=== PATIENT | male | born 1955 | race Caucasian/White ===

== ENCOUNTER 2024-11-19 09:11 | Outpatient (AMB) | payer OTHER, SELFPAY ==
--- NOTE | 2024-11-19 09:27 | MHC.OFFVIS ---
Intake Visit Reasons: ENP-Headaches & Dizziness Allergies pollen extracts Allergy (Unknown, Verified 11/13/24 07:58) Unknown HPI Comments Details: The patient is a 69-year-old male presenting with issues related to balance. Symptoms have been progressively worsening over the past couple of years. The patient experiences particular difficulty maintaining balance when looking up and in darkened environments. Although he reports crampiness in his limbs, he denies any pain. The patient has a history of alcohol use disorder, having ceased all alcohol consumption five years ago. He experienced past falls and loss of consciousness, likely associated with his previous alcohol use, but reports no such episodes since quitting drinking. Additionally, the patient denies any current seizure-like occurrences or significant mental symptoms such as hallucinations. Anxiety is being managed with paroxetine. Memory issues and a recent episode of nighttime urinary incontinence were discussed, with connections to coffee consumption and blood pressure medication considered. [facility] Medical History (Updated 11/19/24 @ 09:35 by Carli Mclaughlin MD) Vitamin D deficiency Vitamin B12 deficiency Imbalance Other migraine, intractable, with status migrainosus Vertigo HLD (hyperlipidemia) Hypertension Pre-diabetes Surgical History (Updated 11/13/24 @ 07:55 by Raven Galvan CMA) S/P partial colectomy with anastomosis Family History (Updated 11/13/24 @ 07:56 by Raven Galvan CMA) Sister Hypertension Lung cancer Brother Hypertension Diabetes mellitus Review of Systems Const Details: - Neurological: Reports balance difficulties, memory issues. Denies seizures or mental health symptoms like hallucinations. - Psychiatric: Reports anxiety, managed with paroxetine. - Constitutional: Reports having fallen in the past, with loss of consciousness five years ago. - Genitourinary: Reports a recent mild urinary incontinence incident at night. - Endocrine: Denies history of diabetes. - Musculoskeletal: Reports crampiness, denies pain. Physical Exam Neuro Other: Mental Status: Alert and oriented to person, place, and time. Normal attention. Normal spontaneous speech, fluency, and comprehension. No obvious issues with mood and memory. Affect is appropriate. Cranial Nerves: CN II: Visual rivera full to confrontation, visual acuity intact. CN III, IV, : Pupils equal, round, reactive to light and accommodation. Extraocular movements are normal. CN V: Facial sensation is normal. CN VII: Facial movements symmetrical. CN VIII: Hearing intact to bedside conversation is normal. CN IX, X: Palate elevates symmetrically. CN XI: Shoulder shrug and head turn symmetrical. CN XII: Tongue midline without atrophy or fasciculations. -Knee and ankle reflexes are 1+, upper limb reflexes are 1+. Plantar reflexes are flexor. Vibration sense is present in toes; joint position sense is absent. - Sensory Exam- Inability to accurately identify movement direction with eyes closed. - Coordination- Rnmzwi-jy-cyzm test is intact bilaterally. Extrapyramidal: Full facial expressions and blinking. No rigidity. Movements are appropriate with no tremor or abnormality. Speech: Normal; no dysarthria or tremor. 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 He probably has combination of central peripheral nervous system pathology, partly related to alcohol exposure. As his symptoms were getting worse, workup is recommended for proper management. Rec: a: EMG/NCS for evaluation of nerves b: B12/folate c: MRI brain w/o Orders: Orders MR head/brain wo con Today G31.84 - Mild cognitive impairment of uncertain or unknown etiology, R27.0 - Ataxia, unspecified NE nerve conduction velocity Today G62.9 - Polyneuropathy, unspecified NE electromyogram (EMG) Today G62.9 - Polyneuropathy, unspecified Vitamin B12 and Folate Today G62.9 - Polyneuropathy, unspecified Coding Level of Care Code Tele New Pt Level 5 (48008) Diagnoses Sensory neuropathy G62.9 Ataxia R27.0 MCI (mild cognitive impairment) G31.84
--- OUTSIDE RECORDS SUMMARY | 2024-11-19 09:32 | XMS_ITS | Patient Health Record ---
Author Organization [facility] laura [place] Address [address] [place] [address] Care Team Providers Care Tariff Expert Name Role Phone Jolanta Yadav Primary Care Provider Matthew vegas Twila May Unavailable [phone] Allergies No Known Allergies Reason For Referral No Information Medications Medication SIG (Take, Route, Fr equency, Duration) Notes Start Date End Date Status atenolol Active Losartan Potassium A ctive PARoxetine HCl 40 MG 1 tablet in the mor baljit Orally Once a day; Duration: 30 day(s) Active Social History Tobacco Use: Social History Observation Description Date Details (start date - stop date) Current Smoker 04/15/2016 - NA Tobacco Use/Smoking Question Answer Notes Are you a: current smoker When did you start smoking? 04/15/2016 How often do you smoke cigarettes? every day How many cigarettes a day do you smoke? 6-10 Alcohol Screen Question Answer Notes Did you have a drink containing alcohol in the p ast year? No Points 0 Interpretation Negative Tobacco use other than smoking: Question Answer Notes Are you an other tobacco user? 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) Active confirmed Problem Localized, primary osteoarthritis of the ankle and/or foot (700721365) Arthritis of joint of lesser toe, left (M19.072) Active confirmed Problem Localized, primary osteoarthritis of the ankle and/or foot (317320471) Arthritis of joint of lesser toe, right (M19.071) Active confirmed Plan Of Treatment No Information Insurance Providers Payer Name Payer Address Payer Phone Subscriber Number Group Number Insured Name Patient Relationship to Insured Coverage Start Date Coverage End Date [employer] Medicare [id number] [address] [address] [place] [address] [id number] Tosha Wright Spouse - patient is the spouse of the insured Medical (General) History Medical History History ICD Code Alzheimers disease Anxiety High blood pressure Surgical History Surgery Date(Month/Year)
--- OUTSIDE RECORDS SUMMARY | 2024-11-19 09:32 | XMS_ITS | Clinical Summary ---
Author Organization [facility] [address] [facility] Address [address] [place] [address] Phone Care Team Providers Care Compound Worker Name Role Phone Luis Silver MD Primary Care Provider [phone] Allergies Active Allergy Reactions Criticality Noted Date Comments Pollen Extracts 09/06/2023 Medications atenoloL (TENORMIN) 25 mg tabletIndication s:Palpitations TAKE 1 TABLET BY MOUTH EVERY DAY 180 tablet 1 4 Active traZODone (DESYREL) 50 mg tabletIndication s:Anxiety disorder, unspecified TAKE 1 TABLET BY MOUTH EVERYDAY AT BEDTIME 90 tablet 1 5 Active PARoxetine (PAXIL) 40 mg tablet Take 1 tablet (40 mg total) by mouth 1 (one) time each day in the morning. 90 tablet 3 5 Active rosuvastatin (CRESTOR) 20 mg tablet Take 1 tablet (20 mg total) by mouth 1 (one) time each day. 90 tablet 3 5 Active losartan-hydroCH LOROthiazide (HYZAAR) 100-12.5 mg per tablet Take 1 tablet by mouth 1 (one) time each day. 90 tablet 1 5 Active promethazine (PHENERGAN) 12.5 mg tabletIndication s:Benign paroxysmal positional vertigo, unspecified laterality TAKE 1 TABLET BY MOUTH EVERY 6 HOURS NEEDED FOR NAUSEA AND VOMITING 30 tablet 2 5 Active cetirizine (ZyrTEC) 10 mg tablet Take 1 tablet (10 mg total) by mouth 1 (one) time each day. 30 each 11 Active Active Problems Problem Noted Date Diagnosed Date Acquired hammer toe of left foot 06/16/2024 Acquired hammer toe of right foot 06/16/2024 Primary localized osteoarthrosis of ankle and fo ot 06/16/2024 Pronation deformity of right foot 06/16/2024 Essential hypertension 07/10/2022 Hyperlipidemia 07/10/2022 Pre-diabetes 07/10/2022 Encounters Date Type Department Care Team Description 11/02/2024 8:30 AM EDT Office Visit Internal Medicine - [place] [address] [place] [address] Rachel Wade NP Vertigo (Primary Dx); Other migraine with status migrainosus, intractable; Imbalance; Headache with remote history of traumatic head injury; Screening for diabetes mellitus; Screening for ischemic heart disease; Vitamin B12 deficiency; Vitamin D deficiency; Encounter for screening for malignant neoplasm of prostate; Essential hypertension; Hyperlipidemia, unspecified hyperlipidemia type from Last 3 Months Surgical History Surgery Date Site/Laterality Comments OTHER SURGICAL HISTORY PROCEDURE: [place] COLECTOMY PARTIAL W/ANASTOMOSIS Medical History Medical History Date Comments Essential hypertension DX:Essent ial hypertension Hyperlipidemia DX:Hyperlipidemi a Pre-diabetes DX:Pre-diabetes BPPV (benign paroxysmal posi tional vertigo) DX:BPPV (benign paroxysmal p ositional vertigo) Family History Medical History Relation Name Comments Diabetes Brother Hypertension Brother Hypertension Sister Lung cancer Sister Relation Name Status Comments Brother Sister Social History Tobacco Use Types Packs/Day Years Used Date Smoking Tobacco: Every Day Cigarettes Smokeless Tobacco: Never Alcohol Use Standard Drinks/Week Comments Not Currently 0 (1 standard drink = 0.6 oz pur e alcohol) Sex and Gender Information Value Date Recorded Sex Assigned at Male 05/13/2024 2:33 PM EST Legal Sex Male 6:48 PM EST Gender Identity Male 05/13/2024 2:33 PM EST Sexual Orientation Straight 05/13/2024 2: 33 PM EST Obstetrics History Last Filed Vital Signs Vital Sign Reading Time Taken Comments Blood Pressure 136/56 11/02/2024 8:32 AM EDT Pulse 82 11/02/2024 8:32 AM EDT Temperature 36.3 C (97.3 F) 11/02/2024 8:32 AM EDT Respiratory Rate 20 11/02/2024 8:32 AM EDT Oxygen Saturation 95% 11/02/2024 8:32 AM EDT Inhaled Oxygen Concentration - - Weight 85.7 kg (189 lb) 11/02/2024 8:32 AM EDT Height 167.6 cm (5' 6 ) 11/02/2024 8:32 AM EDT Body Mass Index 30.51 11/02/2024 8:32 AM EDT Plan of Treatment Upcoming Encounters Date Type Department Care Team (Late st Contact Info) Description 03/10/2025 8:15 AM EST Office Visit Internal Medicine - [place] [address] [place] [id number] Luis Silver MD [address] [place] [address] Health Maintenance Due Date Last Done Comments COVID-19 Vaccine (#1) 08[birth year]10/1960 DTaP,Tdap,and Td Vaccines (1 - Tdap) 08/10/1974 Pneumococcal Vaccine: 50+ Years (1 of 2 - PCV) 08/10/1974 Zoster Vaccines (1 of 2) 08/10/1974 Colorectal Cancer Screening: Colonoscopy 03/17/2022 Falls Risk Assessment 03/17/2022 Hepatitis C Screening 03/17/2022 Social Influencers of Health Screening 03/17/2022 Depression Screening 04/15/2024 Influenza Vaccine (#1) 2024 Hypertension/CHF/CAD Annual BMP Blood Test 11/02/2025 11/02/2024, 10/02/2023, 09/11/2023 Cholesterol Screening (Lipid Panel) 11/02/2029 11/02/2024, 09/11/2023 RSV Immunization Adult Patients (1 - 1-dose 75+ series) 08/10/2030 Abdominal Aortic Aneurysm (AAA) Screen Completed 07/17/2023 HIB Vaccines Aged Out No longer eligi ble based on patient's age to complete this topic HPV Vaccines Aged Out No longer eligi ble based on patient's age to complete this topic Hepatitis A Vaccines Aged Out No long er eligible based on patient's age to complete this topic Hepatitis B Vaccines Aged Out No long er eligible based on patient's age to complete this topic IPV Vaccines Aged Out No longer eligi ble based on patient's age to complete this topic MMR Vaccines Aged Out No longer eligi ble based on patient's age to complete this topic Meningococcal ACWY Vaccine Aged Out N o longer eligible based on patient's age to complete this topic Meningococcal B Vaccine Aged Out No l onger eligible based on patient's age to complete this topic RSV Immunization Patients Under 20 months Aged Out No longer eligible b ased on patient's age to complete this topic Varicella Vaccines Aged Out No longer eligible based on patient's age to complete this topic Procedures Procedure Name Priority Date/Time Associated Diagnosis Comments PROSTATE SPECIFIC ANTIGEN SCREEN Routine 11/02/2024 9:15 AM EDT Encounter for screening for malignant neoplasm of prostate VITAMIN D 25 HYDROXY Routine 11/02/2024 9:15 AM EDT Vitamin D deficiency VITAMIN B12 Routine 11/02/2024 9:15 AM EDT Vitamin B12 deficiency THYROID STIMULATING HORMONE WITH REFLEX TO FREE T4 AND FREE T3 Routine 11/02/2024 9:15 AM EDT Essential hypertension LIPID PANEL WITH REFLEX TO DIRECT LDL Routine 11/02/2024 9:15 AM EDT Screening for ischemic heart disease MAGNESIUM Routine 11/02/2024 9:15 AM EDT Essential hypertension HEMOGLOBIN A1C Routine 11/02/2024 9:15 AM EDT Screening for diabetes mellitus COMPREHENSIVE METABOLIC PANEL Routine 11/02/2024 9:15 AM EDT Essential hypertension COMPLETE BLOOD COUNT Routine 11/02/2024 9:15 AM EDT Essential hypertension US ABDOMINAL AORTA REAL TIME SCREEN STUDY AAA Routine 07/17/2023 8:26 AM EDT Nicotine dependence, unspecified, uncomplicated from Last 3 Months or Most Recently Relevant to Health Maintenance Results * Prostate specific antigen screen (11/02/2024 9:15 AM EDT) PSA 1.51 0.00 - 4.00 ng/mL LAB CHEMISTRY METHOD 11/02/2024 3:30 PM EDT [facility] Blood Venous blood specimen / Unknown Venipuncture / Unknown 11/02/2024 9:15 AM EDT 11/02/2024 9:15 AM EDT Narrative [facility] - 11/02/2024 3:30 PM EDT The Siemens Advia Lexyaur Chemiluminescent Immunoassay is used. Results obtained with different assay methods or kits cannot be used interchangeably. Results cannot be interpreted as absolute evidence of the presence or absence of malignant disease. Rachel Wade NP LAB BLOOD ORDERABLES Final Resul t Performing Organization Address [facility] Co de Phone Number [facility] [address] [place] [address], * Thyroid stimulating hormone with reflex to free t4 and free t3 (11/02/2024 9:15 AM EDT) Pathologist [facility] TSH 1.37 0.40 - 4.00 mcIU/mL LAB CHEMISTRY METHOD 11/02/2024 5:55 PM EDT [facility] Blood Venous blood specimen / Unknown Venipuncture / Unknown 11/02/2024 9:15 AM EDT 11/02/2024 9:15 AM EDT Rachel Wade LAB BLOOD ORDERABLES Final Resul t Performing Organization Address [facility]/ZIP Co de Phone Number [facility] [address] [place] [address], [place] [phone] * (ABNORMAL) Lipid panel with reflex to direct LDL (11/02/2024 9:15 AM EDT) Pathologist [facility] Cholesterol 145 0 - 200 mg/dL LAB CHEMISTRY METHOD 11/02/2024 2:28 PM EDT [facility] Triglycerides 424(H) 0 - 150 mg/dL LAB CHEMISTRY METHOD 11/02/2024 2:28 PM EDT [facility] HDL 33(L) >=40 mg/dL LAB CHEMISTRY METHOD 11/02/2024 2:28 PM EDT [facility] LDL Calculated 27 0 - 100 mg/dL LAB CHEMISTRY METHOD 11/02/2024 2:28 PM EDT [facility] Comment:Unable to calculate when triglycerides >400 mg/dL. VLDL Cholesterol [place] 84.8 mg/dL LAB CHEMISTRY METHOD 11/02/2024 2:28 PM EDT [facility] Comment:Unable to calculate when triglycerides >400 mg/dL. Non HDL Chol. (LDL+VLDL) 112 <145 mg/dL LAB CHEMISTRY METHOD 11/02/2024 2:28 PM EDT [facility] Comment:Unable to calculate when triglycerides >400 mg/dL. Chol/HDL Ratio 4.4 0.0 - 4.4 LAB CHEMISTRY METHOD 11/02/2024 2:28 PM EDT [facility] Blood Venous blood specimen / Unknown Venipuncture / Unknown 11/02/2024 9:15 AM EDT 11/02/2024 9:15 AM EDT us Rachel Wade NP LAB BLOOD ORDERABLES Final Resul t [facility] [address] [place] [address], * Vitamin D 25 hydroxy (11/02/2024 9:15 AM EDT) Vit D, 25-Hydroxy 48.7 30.0 - 80.0 ng/mL LAB CHEMISTRY METHOD 11/02/2024 3:29 PM EDT [facility] Blood Venous blood specimen / Unknown Venipuncture / Unknown 11/02/2024 9:15 AM EDT 11/02/2024 9:15 AM EDT us Rachel Wade POSITIVE PRINTER OPERATOR LAB BLOOD ORDERABLES Final Resul t [facility] [address] [place] [address], [place] [phone] * Complete blood count (11/02/2024 9:15 AM EDT) WBC 7.6 4.8 - 10.8 K/mcL LAB HEMETOLOGY METHOD 11/02/2024 10:35 AM EDT [facility] RBC 4.80 4.50 - 5.50 M/mcL LAB HEMETOLOGY METHOD 11/02/2024 10:35 AM EDT [facility] Hemoglobin 14.9 13.5 - 17.5 g/dL LAB HEMETOLOGY METHOD 11/02/2024 10:35 AM EDT [facility] Hematocrit 44.5 42.0 - 54.0 % LAB HEMETOLOGY METHOD 11/02/2024 10:35 AM EDT [facility] MCV 92.1 79.0 - 98.0 FL LAB HEMETOLOGY METHOD 11/02/2024 10:35 AM EDT [facility] MCH 30.8 27.0 - 32.0 pcg LAB HEMETOLOGY METHOD 11/02/2024 10:35 AM EDT [facility] MCHC 33.5 32.0 - 37.0 g/dL LAB HEMETOLOGY METHOD 11/02/2024 10:35 AM EDT [facility] RDW 12.4 11.0 - 15.0 % LAB HEMETOLOGY METHOD 11/02/2024 10:35 AM EDT [facility] Platelets 156 130 - 400 K/mcL LAB HEMETOLOGY METHOD 11/02/2024 10:35 AM EDT [facility] MPV 9.9 7.0 - 11.0 FL LAB HEMETOLOGY METHOD 11/02/2024 10:35 AM EDT [facility] NRBC 0.0 <1.0 % LAB HEMETOLOGY METHOD 11/02/2024 10:35 AM EDT [facility] NRBC Absolute 0.00 <0.10 K/mcL LAB HEMETOLOGY METHOD 11/02/2024 10:35 AM EDT [facility] Blood Venous blood specimen / Unknown Venipuncture / Unknown 11/02/2024 9:15 AM EDT 11/02/2024 9:15 AM EDT us Ramos Sheri DEUTSCH LAB BLOOD ORDERABLES Final Resul t Performing Organization Address City/[facility]/ZIP Co de Phone Number [facility] [address] [place] [address], [place] [phone] * Magnesium (11/02/2024 9:15 AM EDT) [facility] Magnesium 2.4 1.9 - 2.6 mg/dL LAB CHEMISTRY METHOD 11/02/2024 1:40 PM EDT [facility] Blood Venous blood specimen / Unknown Venipuncture / Unknown 11/02/2024 9:15 AM EDT 11/02/2024 9:15 AM EDT us Rachel Wade NP LAB BLOOD ORDERABLES Final Resul t [facility] [address] [place] [address], [place] [phone] * (ABNORMAL) Hemoglobin A1c (11/02/2024 9:15 AM EDT) Pathologist [facility] Hemoglobin A1C 6.8(H) <6.5 % LAB CHEMISTRY METHOD 11/02/2024 1:04 PM EDT [facility] Mean Bld Glu Estim. 148 mg/dL LAB CHEMISTRY METHOD 11/02/2024 1:04 PM EDT [facility] Blood Venous blood specimen / Unknown Venipuncture / Unknown 11/02/2024 9:15 AM EDT 11/02/2024 9:15 AM EDT Rachel Wade POSITIVE PRINTER OPERATOR LAB BLOOD ORDERABLES Final Resul t Performing Organization Address City/[facility]/ZIP Co de Phone Number [facility] [address] [place] [address], [place] [phone] * Vitamin B12 (11/02/2024 9:15 AM EDT) Pathologist [facility] Vitamin B-12 736 250 - 900 pcg/mL LAB CHEMISTRY METHOD 11/02/2024 2:13 PM EDT [facility] Blood Venous blood specimen / Unknown Venipuncture / Unknown 11/02/2024 9:15 AM EDT 11/02/2024 9:15 AM EDT Rachel Wade POSITIVE PRINTER OPERATOR LAB BLOOD ORDERABLES Final Resul t Performing Organization Address [facility]/ZIP Co de Phone Number [facility] [address] [place] [address], [place] [phone] * (ABNORMAL) Comprehensive metabolic panel (11/02/2024 9:15 AM EDT) Pathologist [facility] Sodium 141 133 - 145 mmol/L LAB CHEMISTRY METHOD 11/02/2024 2:13 PM EDT [facility] Potassium 3.9 3.5 - 5.5 mmol/L LAB CHEMISTRY METHOD 11/02/2024 2:13 PM T [facility] Chloride 106 96 - 110 mmol/L LAB CHEMISTRY METHOD 11/02/2024 2:13 PM T [facility] CO2 28 21 - 32 mmol/L LAB CHEMISTRY METHOD 11/02/2024 2:13 PM EDT [facility] Anion Gap 7 3 - 11 LAB CHEMISTRY METHOD 11/02/2024 2:13 PM [facility] Glucose 105(H) 70 - 100 mg/dL LAB CHEMISTRY METHOD 11/02/2024 2:13 PM [facility] BUN 15 5 - 25 mg/dL LAB CHEMISTRY METHOD 11/02/2024 2:13 PM [facility] Creatinine 1.10 0.70 - 1.30 mg/dL LAB CHEMISTRY METHOD 11/02/2024 2:13 PM [facility] eGFR 73 >=60 mL/min/1. 73m2 LAB CHEMISTRY METHOD 11/02/2024 2:13 PM [facility] Comment:Calculation based on the Chronic Kidney Disease Epidemiology Collaboration (CKD-EPI) equation refit without adjustment for race. BUN/Creatinine Ratio 13.6 LAB CHEMISTRY METHOD 11/02/2024 2:13 PM [facility] Calcium 9.5 8.5 - 10.5 mg/dL LAB CHEMISTRY METHOD 11/02/2024 2:13 PM [facility] AST (SGOT) 18 10 - 42 unit/L LAB CHEMISTRY METHOD 11/02/2024 2:13 PM [facility] ALT (SGPT) 30 10 - 60 unit/L LAB CHEMISTRY METHOD 11/02/2024 2:13 PM [facility] Alkaline Phosphatase 80 42 - 121 unit/L LAB CHEMISTRY METHOD 11/02/2024 2:13 PM [facility] Total Protein 7.0 6.0 - 8.0 g/dL LAB CHEMISTRY METHOD 11/02/2024 2:13 PM [facility] Albumin 4.3 3.2 - 5.0 g/dL LAB CHEMISTRY METHOD 11/02/2024 2:13 PM [facility] Total Bilirubin 0.6 0.0 - 1.4 mg/dL LAB CHEMISTRY METHOD 11/02/2024 2:13 PM [facility] Blood Venous blood specimen / Unknown Venipuncture / Unknown 11/02/2024 9:15 AM EDT 11/02/2024 9:[address] [facility] Rachle Wade NP LAB BLOOD ORDERABLES Final Resul t [facility] ([facility]) [facility] [address] [place] [address], * US ABDOMINAL AORTA REAL TIME SCREEN STUDY AAA (07/17/2023 8:26 AM EDT) Anatomical Region Laterality Modality Ultrasound 05/01/2023 9:31 AM EST Narrative 07/17/2023 11:14 AM EDT Ultrasound of the abdominal aorta. History screening for AAA. There is no evidence of AAA. Proximal aorta measures 2.5 cm, mid aorta measures 1.7 cm, distal aorta measures 1.5 cm. Proximal common iliac arteries measure 1.2 cm each. CONCLUSIONS: No evidence of AAA. Procedure Note Chloe Silverman MD - 12/02/2023 Ultrasound of the abdominal aorta. History screening for AAA. There is no evidence of AAA. Proximal aorta measures 2.5 cm, mid aortameasures 1.7 cm, distal aorta measures 1.5 cm. Proximal common iliac arteries measure 1.2 cmeach. CONCLUSIONS: No evidence of AAA. Jolanta Yadav NP IMG US PROCEDURES Final Result from Last 3 Months or Most Recently Relevant to Health Maintenance Insurance [facility] [place] [id number] MEDICARE Care Teams Compound Worker Relationship Specialty Start Date End Date Luis Silver MD [address] [facility] [address] [place] [address] PCP - General 09/12/23
--- OUTSIDE RECORDS SUMMARY | 2024-11-19 09:32 | XMS_ITS | Clinical Summary ---
Author Organization [facility] Address [address] [address] Phone Care Team Providers Care Silk Screen Processor Name Role Phone Sylvester Hemphill DO Primary Care Provider [phone] EmilianoSylvester wooten DO Unavailable Miguelina Presley PA-C Unavailable [phone] Immunizations No known immunizations Social History Tobacco Use Types Packs/Day Years Used Date Smoking Tobacco: Never Assessed Education Answer Date Recorded Are you interested in more education? Not on telma e 08/09/2022 Are you concerned about learning? Not on file 08/09/2022 No 08/09/2022 No 08/09/2022 Digital Access Answer Date Recorded No 09/10/2022 No 09/10/2022 No 09/10/2022 Reliable internet access at home? Not on file 09/10/2022 Device with a working camera? Not on file Sex and Gender Information Value Date Recorded Sex Assigned at Not on file Legal Sex Male 7:56 PM EST Gender Identity Not on file Sexual Orientation Not on file Last Filed Vital Signs Vital Sign Reading Time Taken Comments Blood Pressure - - Pulse - - Temperature 36.8 C (98.3 F) 05/27/2012 9:52 AM EST Respiratory Rate - - Oxygen Saturation - - Inhaled Oxygen Concentration - - Weight 85.7 kg (189 lb) 05/27/2012 9:52 AM EST Height 167.6 cm (5' 6 ) 05/27/2012 9:52 AM EST Body Mass Index 30.51 05/27/2012 9:52 AM EST Plan of Treatment Health Maintenance Due Date Last Done Comments Adult Td,Tdap Booster 1955 LIPID PANEL 1955 DEPRESSION SCREENING 1967 SMOKING Hx and SMOKELESS TOB ACCO SCREENING 08/10/1968 HEPATITIS C SCREENING 08/10/1973 COLOGUARD 08/10/2000 COLONOSCOPY 08/10/2000 COLORECTAL CANCER SCREENING 08/10/2000 FIT TEST 08/10/2000 FOBT 08/10/2000 SIGMOIDOSCOPY 08/10/2000 VIRTUAL COLONOSCOPY 08/10/2000 PNEUMOCOCCAL VACCINES (50+ y ears) (1 of 1 - PCV) 08/10/2005 ZOSTER VACCINES (1 of 2) 08/10/2005 COVID-19 VACCINE (1 - 2023-2 5 season) 2023 RSV VACCINE (1 - 1-dose 75+ series) 08/10/2030 HEPATITIS A VACCINES Aged Out No long er eligible based on patient's age to complete this topic HIB VACCINES Aged Out No longer eligi ble based on patient's age to complete this topic MENINGOCOCCAL VACCINES (ACWY) Aged Out No longer eligible based on patient's age to complete this topic MENINGOCOCCAL VACCINES (B) Aged Out N o longer eligible based on patient's age to complete this topic Medical Devices Not on file Insurance [facility] POS [facility] POS [facility] [place] [address] [address] [facility] POS Care Teams Silk Screen Processor Relationship Specialty Start Date End Date Sylvester Hemphill DO [email or web address] PCP - General Internal Medicine 12/02/18 Sylvester Hemphill DO [email or web address] Internal Medicine 12/02/18 Miguelina Presely PA-C [address] [place] [id number] [email or web address] Physician Test Equipment Mechanic Hematology 09/30/23 Additional Source Comments The information contained in this document represents components of the legal health record. It is not the complete legal health record.[facility]
== END 2024-11-19 09:45 | disposition home or self-care (01) ==
LOC: HO.HSM 09:11
PROVIDERS: PCP Internal Medicine; Visit Provider Psychiatry & Neurology Neurology
DX: G62.9 Polyneuropathy, unspecified (principal); R27.0 Ataxia, unspecified; G31.84 Mild cognitive impairment of uncertain or unknown etiology
CPT/HCPCS: 99204

== ENCOUNTER → 2024-12-07 16:20 | Outpatient (BNV) | payer OTHER, SELFPAY | PROVIDERS: Visit Provider Radiology Diagnostic Radiology | DX: R27.0 Ataxia, unspecified (principal) | CPT/HCPCS: 70551 ==

== ENCOUNTER 2024-12-07 16:24 | Outpatient (REF) | payer OTHER, SELFPAY ==
--- NOTE | ~2024-12-07 | MR_ITS ---
CLINICAL HISTORY: R27.0 - Ataxia, unspecified MR brain without gadolinium Comparison: None provided Findings: No acute signal abnormalities noted on diffusion-weighted imaging. No acute intracranial fluid collection, hematoma or signal abnormality. Chronic ischemic white matter disease and volume loss. Midline structures are intact and within normal limits. Normal flow voids are noted within the vascular structures. Sinuses and mastoids are clear. Impression: No significant abnormalities. This document has been electronically signed by: Ahmet Francois MD on 12/08/2024 20:51:28
--- OUTSIDE RECORDS SUMMARY | 2024-12-07 18:10 | XMS_ITS | Clinical Summary ---
Author Organization [facility] Address [address] [address] Phone Care Team Providers Care Driving Teacher Name Role Phone Sylvester Hemphill DO Primary Care Provider [phone] EmilianoSylvester wooten DO Unavailable Miguelina Presley PA-C Unavailable [phone] Immunizations No known immunizations Social History Tobacco [...] topic Medical Devices Not on file Insurance [facility] POS [facility] [place] [address] [address] [facility] POS Care Teams Driving Teacher Relationship Specialty Start Date End Date Sylvester Hemphill DO [email or web address] PCP - General Internal Medicine 12/02/18 Sylvester Hemphill DO [email or web address] Internal Medicine 12/02/18 Miguelina Presley PA-C [address] [place] [id number] [email or web address] Physician Directional Driller Hematology 09/30/23 Additional Source Comments The information contained in this document represents components of the legal health record. It is not the complete legal health record.[facility]
--- OUTSIDE RECORDS SUMMARY | 2024-12-07 18:10 | XMS_ITS | Patient Health Record ---
Author Organization [facility] laura Cranston Address [address] [facility] [place] [address] Care Team Providers Care Auricular Therapist Name Role Phone Jolanta Yadav Primary Care Provider Matthew vegas Twila May Unavailable [phone] Allergies No Known Allergies Reason For Referral [...] Problem Acquired hammer toe of right foot (5564523995266762) Other hammer toe(s) (acquired), right foot (M20.41) Active confirmed Problem Acquired hammer toe of left foot (3426788183852645) Other hammer toe(s) (acquired), left foot (M20.42) Active confirmed Problem 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) Active confirmed Problem Localized, primary osteoarthritis of the ankle and/or foot (372490025) Arthritis of joint of lesser toe, left (M19.072) Active confirmed Problem Localized, primary osteoarthritis of the ankle and/or foot (251582626) Arthritis of joint of lesser toe, right (M19.071) Active confirmed Plan Of Treatment No Information Insurance Providers Payer Name Payer Address Payer Phone Subscriber Number Group Number Insured Name Patient Relationship to Insured Coverage Start Date Coverage End Date [employer] Medicare [id number] [address] [address] [place] [phone] [id number] Tosha Wright Spouse - patient is the spouse of the insured Medical (General) History Medical History History ICD Code Alzheimers disease Anxiety High blood pressure Surgical History Surgery Date(Month/Year)
--- OUTSIDE RECORDS SUMMARY | 2024-12-07 18:10 | XMS_ITS | Clinical Summary ---
Author Organization [facility] [address] [facility] Address [address] [place] [address] Phone Care Team Providers Care Aircraft Powerplant Repairer Name Role Phone Luis Silver MD Primary Care Provider [phone] Allergies Active Allergy Reactions Criticality Noted Date Comments Pollen Extracts 09/06/2023 Medications atenoloL (TENORMIN) 25 mg tabletIndication s:Palpitations TAKE 1 TABLET BY MOUTH EVERY DAY 180 tablet 1 4 Active PARoxetine (PAXIL) 40 mg tablet Take [...] (one) time each day. 30 each 11 5 Active metFORMIN (GLUCOPHAGE) 500 mg tabletIndication s:Type 2 diabetes mellitus without complication, without long-term current use of insulin (CMS/[facility] V24, CMS/HCC V28) Take 1 tablet (500 mg total) by mouth 1 (one) time each day with breakfast. 30 each 3 5 Active traZODone (DESYREL) 50 mg tabletIndication s:Anxiety disorder, unspecified Take 1 tablet (50 mg total) by mouth at bedtime. 90 tablet 1 5 Active traZODone (DESYREL) 50 mg tabletIndication s:Anxiety disorder, unspecified TAKE 1 TABLET BY MOUTH EVERYDAY AT BEDTIME 90 tablet 1 5 11/27/19 25 Discontinu ed(Reorder ) Active Problems Problem Noted Date Diagnosed Date Acquired hammer toe of left foot 06/16/2024 Acquired hammer toe of right foot 06/16/2024 Primary localized osteoarthrosis of ankle and fo ot 06/16/2024 Pronation deformity of right foot 06/16/2024 Essential hypertension 07/10/2022 Hyperlipidemia 07/10/2022 Pre-diabetes 07/10/2022 Encounters Date Type Department Care Team Description 11/02/2024 8:30 AM EDT Office Visit Internal Medicine - [address] [place] [address] Rachel Wade NP Vertigo (Primary [...] Date Site/Laterality Comments OTHER SURGICAL HISTORY PROCEDURE: NE COLECTOMY PARTIAL W/ANASTOMOSIS Medical History Medical History [...] AM EST Office Visit Internal Medicine - [address] [address] Luis Silver MD [address] [place] [id number] Health Maintenance Due Date Last Done Comments COVID-19 Vaccine (#1) 08/10/1960 Diabetes: Annual Foot Exam 08/10/1965 Diabetes: Annual Retina Eye Exam 08/10/1965 DTaP,Tdap,and Td Vaccines (1 - Tdap) 08/10/1974 Pneumococcal Vaccine: 50+ Years (1 of 2 - PCV) 08/10/1974 Zoster Vaccines (1 of 2) 08/10/1974 Colorectal Cancer Screening: Colonoscopy 03/17/2022 Falls Risk Assessment 03/17/2022 Hepatitis C Screening 03/17/2022 Social Influencers of Health Screening 03/17/2022 Depression Screening 04/15/2024 Diabetes: Annual Urine Albumin-Creatinine Ratio (uACR) 11/20/2024 Influenza Vaccine (#1) 2024 Diabetes: Blood Sugar Contro l Test (HGBA1C) 05/05/2025 11/02/2024, 09/11/2023 Diabetes: Annual GFR (Glomerular Filtration Rate) 11/02/2025 11/02/2024, 10/02/2023, 09/11/2023 Hypertension/CHF/CAD Annual BMP Blood Test 11/02/2025 11/02/2024, [...] LAB CHEMISTRY METHOD 11/02/2024 3:30 PM EDT [facility] Blood Venous blood specimen / Unknown Venipuncture / Unknown 11/02/2024 9:15 AM EDT 11/02/2024 9:15 AM EDT Narrative [facility] - 11/02/2024 3:30 PM EDT The Siemens Advia Centaur Chemiluminescent Immunoassay is used. Results obtained with different assay methods or kits cannot be used interchangeably. Results cannot be interpreted as absolute evidence of the presence or absence of malignant disease. us Rachel Wade NP LAB BLOOD ORDERABLES Final Resul t [facility] [address] [place] [address], * Thyroid stimulating hormone with reflex to free t4 and free t3 (11/02/2024 9:15 AM EDT) TSH 1.37 0.40 - 4.00 mcIU/mL LAB CHEMISTRY METHOD 11/02/2024 5:55 PM EDT [facility] Blood Venous blood specimen / Unknown Venipuncture / Unknown 11/02/2024 9:15 AM EDT 11/02/2024 9:15 AM EDT us Rachel Wade ANESTHESIA TECHNICIAN LAB BLOOD ORDERABLES Final Resul t [facility] [address] [place] [address], [place] [phone] * (ABNORMAL) Lipid panel with reflex to direct LDL (11/02/2024 9:15 AM EDT) Cholesterol 145 0 - 200 mg/dL LAB CHEMISTRY METHOD 11/02/2024 2:28 PM EDT [facility] Triglycerides 424(H) 0 - 150 mg/dL LAB CHEMISTRY METHOD 11/02/2024 2:28 PM T [facility] HDL 33(L) >=40 mg/dL LAB CHEMISTRY METHOD 11/02/2024 2:28 PM EDT [facility] LDL Calculated 27 0 - 100 mg/dL LAB CHEMISTRY METHOD 11/02/2024 2:28 PM T [facility] Comment:Unable to calculate when triglycerides >400 mg/dL. VLDL Cholesterol [place] 84.8 mg/dL LAB CHEMISTRY METHOD 11/02/2024 2:28 PM EDT [facility] Comment:Unable to calculate when triglycerides >400 mg/dL. Non HDL Chol. (LDL+VLDL) 112 <145 mg/dL LAB CHEMISTRY METHOD 11/02/2024 2:28 PM EDT [facility] Comment:Unable to calculate when triglycerides >400 mg/dL. Chol/HDL Ratio 4.4 0.0 - 4.4 LAB CHEMISTRY METHOD 11/02/2024 2:28 PM [facility] Blood Venous blood specimen / Unknown Venipuncture / Unknown 11/02/2024 9:15 AM EDT 11/02/2024 9:15 AM EDT Rachel Wade NP LAB BLOOD ORDERABLES Final Resul t Performing Organization Address [facility]/ZIP Co de Phone Number [facility] [address] [place] [address], [place] [phone] * Vitamin D 25 hydroxy (11/02/2024 9:15 AM EDT) [facility] Vit D, 25-Hydroxy 48.7 30.0 - 80.0 ng/mL LAB CHEMISTRY METHOD 11/02/2024 3:29 PM EDT [facility] Blood Venous blood specimen / Unknown Venipuncture / Unknown 11/02/2024 9:15 AM EDT 11/02/2024 9:15 AM EDT Rachel Wade ANESTHESIA TECHNICIAN LAB BLOOD ORDERABLES Final Resul t Performing Organization Address [facility] de Phone Number [facility] [address] [place] [address], [place] [phone] * Complete blood count (11/02/2024 9:15 AM EDT) [facility] WBC 7.6 4.8 - 10.8 K/mcL LAB HEMETOLOGY METHOD 11/02/2024 10:35 AM EDT [facility] RBC 4.80 4.50 - 5.50 M/mcL LAB HEMETOLOGY METHOD 11/02/2024 10:35 AM EDT [facility] Hemoglobin 14.9 13.5 - 17.5 g/dL LAB HEMETOLOGY METHOD 11/02/2024 10:35 AM EDT [facility] Hematocrit 44.5 42.0 - 54.0 % LAB HEMETOLOGY METHOD 11/02/2024 10:35 AM EDT [facility] MCV 92.1 79.0 - 98.0 FL LAB HEMETOLOGY METHOD 11/02/2024 10:35 AM EDT [facility] MCH 30.8 27.0 - 32.0 pcg LAB HEMETOLOGY METHOD 11/02/2024 10:35 AM EDT [facility] MCHC 33.5 32.0 - 37.0 g/dL LAB HEMETOLOGY METHOD 11/02/2024 10:35 AM EDT [facility] RDW 12.4 11.0 - 15.0 % LAB HEMETOLOGY METHOD 11/02/2024 10:35 AM EDT [facility] Platelets 156 130 - 400 K/mcL LAB HEMETOLOGY METHOD 11/02/2024 10:35 AM EDT [facility] MPV 9.9 7.0 - 11.0 FL LAB HEMETOLOGY METHOD 11/02/2024 10:35 AM EDT [facility] NRBC 0.0 <1.0 % LAB HEMETOLOGY METHOD 11/02/2024 10:35 AM EDT [facility] NRBC Absolute 0.00 <0.10 K/mcL LAB HEMETOLOGY METHOD 11/02/2024 10:35 AM EDT [facility] Blood Venous blood specimen / Unknown Venipuncture / Unknown 11/02/2024 9:15 AM EDT 11/02/2024 9:15 AM EDT us Rachel Wade NP LAB BLOOD ORDERABLES Final Resul t [facility] [address] [place] [address], * Magnesium (11/02/2024 9:15 AM EDT) Magnesium 2.4 1.9 - 2.6 mg/dL LAB CHEMISTRY METHOD 11/02/2024 1:40 PM EDT [facility] Blood Venous blood specimen / Unknown Venipuncture / Unknown 11/02/2024 9:15 AM EDT 11/02/2024 9:15 AM EDT us Rachel Wade ANESTHESIA TECHNICIAN LAB BLOOD ORDERABLES Final Resul t Performing Organization Address [facility] de Phone Number [facility] [address] [place] [address], [place] [phone] * (ABNORMAL) Hemoglobin A1c (11/02/2024 9:15 AM EDT) Pathologist [facility] [place] Hemoglobin A1C 6.8(H) <6.5 % LAB CHEMISTRY METHOD 11/02/2024 1:04 PM EDT [facility] Mean Bld Glu Estim. 148 mg/dL LAB CHEMISTRY METHOD 11/02/2024 1:04 PM EDT [facility] Blood Venous blood specimen / Unknown Venipuncture / Unknown 11/02/2024 9:15 AM EDT 11/02/2024 9:15 AM EDT Rachel Wade ANESTHESIA TECHNICIAN LAB BLOOD ORDERABLES Final Resul t Performing Organization Address [facility] de Phone Number [facility] [address] [place] [address], [place] [phone] * Vitamin B12 (11/02/2024 9:15 AM EDT) Pathologist [facility] Vitamin B-12 736 250 - 900 pcg/mL LAB CHEMISTRY METHOD 11/02/2024 2:13 PM EDT [facility] Blood Venous blood specimen / Unknown Venipuncture / Unknown 11/02/2024 9:15 AM EDT 11/02/2024 9:15 AM EDT Rachel Wade NP LAB BLOOD ORDERABLES Final Resul t Performing Organization Address City/[facility] Co de Phone Number [facility] [address] [place] [address], [place] [phone] * (ABNORMAL) Comprehensive metabolic panel (11/02/2024 9:15 AM EDT) Sodium 141 133 - 145 mmol/L LAB CHEMISTRY METHOD 11/02/2024 2:13 PM EDT [facility] Potassium 3.9 3.5 - 5.5 mmol/L LAB CHEMISTRY METHOD 11/02/2024 2:13 PM EDT [facility] Chloride 106 96 - 110 mmol/L LAB CHEMISTRY METHOD 11/02/2024 2:13 PM T [facility] CO2 28 21 - 32 mmol/L LAB CHEMISTRY METHOD 11/02/2024 2:13 PM [facility] Anion Gap 7 3 - 11 LAB CHEMISTRY METHOD 11/02/2024 2:13 PM [facility] Glucose 105(H) 70 - 100 mg/dL LAB CHEMISTRY METHOD 11/02/2024 2:13 PM [facility] BUN 15 5 - 25 mg/dL LAB CHEMISTRY METHOD 11/02/2024 2:13 PM [facility] Creatinine 1.10 0.70 - 1.30 mg/dL LAB CHEMISTRY METHOD 11/02[facility]24 [facility] e[facility] 73 >=60 mL/min/1. 73m2 LAB CHEMISTRY METHOD 11/02/2024 2:13 PM T [facility] Comment:Calculation based on the Chronic Kidney Disease Epidemiology Collaboration (CKD-EPI) equation refit without adjustment for race. BUN/Creatinine Ratio 13.6 LAB CHEMISTRY METHOD 11/02/2024 2:13 PM [facility] Calcium 9.5 8.5 - 10.5 mg/dL LAB CHEMISTRY METHOD 11/02/2024 2:13 PM [facility] AST (SGOT) 18 10 - 42 unit/L LAB CHEMISTRY METHOD 11/02/2024 2:13 PM EDT [facility] ALT (SGPT) 30 10 - 60 unit/L LAB CHEMISTRY METHOD 11/02/2024 2:13 PM EDT [facility] Alkaline Phosphatase 80 42 - 121 unit/L LAB CHEMISTRY METHOD 11/02/2024 2:13 PM EDT [facility] Total Protein 7.0 6.0 - 8.0 g/dL LAB CHEMISTRY METHOD 11/02/2024 2:13 PM EDT [facility] Albumin 4.3 3.2 - 5.0 g/dL LAB CHEMISTRY METHOD 11/02/2024 2:13 PM EDT [facility] Total Bilirubin 0.6 0.0 - 1.4 mg/dL LAB CHEMISTRY METHOD 11/02/2024 2:13 PM EDT [facility] Blood Venous blood specimen / Unknown Venipuncture / Unknown 11/02/2024 9:15 AM EDT 11/02/2024 9:15 AM EDT us Rachel Wade NP LAB BLOOD ORDERABLES Final Resul t [facility] [address] [place] [address], [place] [phone] * [place] ABDOMINAL AORTA REAL TIME SCREEN [...] CONCLUSIONS: No evidence of AAA. Jolanta Yadav ANESTHESIA TECHNICIAN IMG US PROCEDURES Final Result from Last 3 Months or Most Recently Relevant to Health Maintenance [place] [id number] Care Teams Aircraft Powerplant Repairer Relationship Specialty Start Date End Date Luis Silver MD [address] [facility] [address] [place] [address] PCP - General 09/12/23
== END 2024-12-07 16:25 | disposition home or self-care (01) ==
LOC: HO.MRI 16:24
PROVIDERS: Visit Provider Psychiatry & Neurology Neurology
DX: R27.0 Ataxia, unspecified (principal); G31.84 Mild cognitive impairment of uncertain or unknown etiology
CPT/HCPCS: 70551

== ENCOUNTER 2025-01-04 12:23 | Outpatient (AMB) | payer OTHER, SELFPAY ==
--- NOTE | 2025-01-04 12:29 | MHC.OFFVIS ---
Intake Visit Reasons: Results Allergies pollen extracts Allergy (Unknown, Verified 11/13/24 07:58) Unknown HPI Comments Details: 69 yo man with long h/o alcohol drinking until about 2019 was here w c/o progressive loss of balance and dizziness and forgetfulness. He probably has combination of central peripheral nervous system pathology, partly related to alcohol exposure. He is presenting with issues related to balance. Symptoms have been progressively worsening over the past couple of years. The patient experiences particular difficulty maintaining balance when looking up and in darkened environments. Although he reports crampiness in his limbs, he denies any pain. The patient has a history of alcohol use disorder, having ceased all alcohol consumption five years ago. He experienced past falls and loss of consciousness, likely associated with his previous alcohol use, but reports no such episodes since quitting drinking. Additionally, the patient denies any current seizure-like occurrences or significant mental symptoms such as hallucinations. Anxiety is being managed with paroxetine. Memory issues and a recent episode of nighttime urinary incontinence were discussed, with connections to coffee consumption and blood pressure medication considered. [facility] Medical History (Updated 01/04/25 @ 12:32 by Carli Mclaughlin MD) Vitamin D deficiency Vitamin B12 deficiency Imbalance Other migraine, intractable, with status migrainosus Vertigo HLD (hyperlipidemia) Hypertension Pre-diabetes Surgical History (Updated 11/13/24 @ 07:55 by Raven Galvan CMA) S/P partial colectomy with anastomosis Family History (Updated 11/13/24 @ 07:56 by Raven Galvan CMA) Sister Hypertension Lung cancer Brother Hypertension Diabetes mellitus Review of Systems Const Details: - Neurological: Reports balance difficulties, memory issues. Denies seizures or mental health symptoms like hallucinations. - Psychiatric: Reports anxiety, managed with paroxetine. - Constitutional: Reports having fallen in the past, with loss of consciousness five years ago. - Genitourinary: Reports a recent mild urinary incontinence incident at night. - Endocrine: Denies history of diabetes. - Musculoskeletal: Reports crampiness, denies pain. Physical Exam Neuro Other: Mental Status: Alert and oriented to person, place, and time. Normal attention. Normal spontaneous speech, fluency, and comprehension. No obvious issues with mood and memory. Affect is appropriate. Cranial Nerves: CN II: Visual rivera full to confrontation, visual acuity intact. CN III, IV, : Pupils equal, round, reactive to light and accommodation. Extraocular movements are normal. CN V: Facial sensation is normal. CN VII: Facial movements symmetrical. CN VIII: Hearing intact to bedside conversation is normal. CN IX, X: Palate elevates symmetrically. CN XI: Shoulder shrug and head turn symmetrical. CN XII: Tongue midline without atrophy or fasciculations. Extrapyramidal: Full facial expressions and blinking. No rigidity. Movements are appropriate with no tremor or abnormality. Speech: Normal; no dysarthria or tremor. 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 After that he developed unsteadiness of gait and a behavioral syndrome. Behavioral symptoms were better with Paxil but unsteadiness has continued. This was especially noted when he was exposed to walking in dark. His MRI of brain revealed mild cerebellar and mild cerebral cortical atrophy. This would explain his unsteadiness and even behavioral symptoms. I had also requested EMG nerve conduction study in serum B12 and folate levels that were not done and he was advised to have these tests done. Otherwise, he was advised to not drink alcohol, continue taking paroxetine, and adopt healthy lifestyle and regular walking type of exercise. He should avoid walking or using stairs in darkness. He should keep some light on at night to avoid any falling or accidents. Coding Level of Care Code Est Pt Level 4 (43964) Diagnoses Sensory neuropathy G62.9 Ataxia R27.0 MCI (mild cognitive impairment) G31.84
== END 2025-01-04 12:50 | disposition home or self-care (01) ==
LOC: HO.HSM 12:24
PROVIDERS: PCP Internal Medicine; Visit Provider Psychiatry & Neurology Neurology
DX: G62.9 Polyneuropathy, unspecified (principal); R27.0 Ataxia, unspecified; G31.84 Mild cognitive impairment of uncertain or unknown etiology
CPT/HCPCS: 99214

== ENCOUNTER 2025-01-11 08:04 | Outpatient (REF) | payer OTHER, SELFPAY ==
--- NOTE | 2025-01-11 09:10 | EMG_ITS ---
Chief complaint: Balance and dizziness Reason for referral: Polyneuropathy Referred by:?Dr Mclaughlin Procedure done: Bilateral Lower extremities NCS/EMG Bilateral tibial and peroneal motor studies were performed with F-waves. Bilateral tibial H reflexes were obtained. Bilateral superficial peroneal and sural sensory studies were performed an EMG needle examination was performed. Bilateral tibial and peroneal motor distal latencies were slightly prolonged with slight reduction of amplitude and mild slowing of conduction velocities in 30s. F responses were generally delayed with normal H reflexes. Sensory amplitudes were on the lower side with conduction velocities falling and normal range. 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
== END 2025-01-11 08:05 | disposition home or self-care (01) ==
LOC: HO.NEURO 08:04
PROVIDERS: PCP Internal Medicine; Visit Provider Psychiatry & Neurology Neurology
DX: G62.9 Polyneuropathy, unspecified (principal); R73.03 Prediabetes; R42 Dizziness and giddiness; R26.89 Other abnormalities of gait and mobility
CPT/HCPCS: 95886; 95911

== ENCOUNTER → 2025-01-11 09:10 | Outpatient (BNV) | payer OTHER, SELFPAY | PROVIDERS: PCP Internal Medicine; Visit Provider Psychiatry & Neurology Neurology | DX: R42 Dizziness and giddiness (principal); G62.89 Other specified polyneuropathies | CPT/HCPCS: 95886; 95911 ==

== ENCOUNTER 2025-01-18 08:35 | Outpatient (AMB) | payer OTHER, SELFPAY ==
--- NOTE | 2025-01-18 08:45 | A.OFFVIS_ITS ---
Intake Visit Reasons: results Allergies pollen extracts Allergy (Unknown, Verified 11/13/24 07:58) Unknown HPI Comments Details: 69 years old man with history of alcohol drinking that was stopped few years ago. After that he developed unsteadiness of gait and a behavioral syndrome. Behavioral symptoms were better with Paxil but unsteadiness has continued. This was especially noted when he was exposed to walking in dark. His MRI of brain revealed mild cerebellar and mild cerebral cortical atrophy. 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 He is back with multiple questions and to inquire about recent testing. The neuropathy, currently mild, mainly affects his balance and walking. He has tingling and numbness and could stand on his toes and heels, showing physical strength despite the symptoms. The neuropathy's cause is currently unknown, and blood tests are planned to investigate potential etiologies, acknowledging that many neuropathy cases remain idiopathic. Additionally, the patient has a history of excessive alcohol use, leading to brain atrophy visible on MRI. This atrophy has contributed to balance and walking difficulties. The patient is concerned about personality changes, including irritability, anxiety, forgetfulness, and becoming short-tempered, potentially linked to the alcohol-induced changes in the brain. He has been advised that abstaining from alcohol will halt further deterioration of these effects. [facility] Medical History (Updated 01/18/25 @ 08:47 by Carli Mclaughlin MD) Vitamin D deficiency Vitamin B12 deficiency Imbalance Other migraine, intractable, with status migrainosus Vertigo HLD (hyperlipidemia) Hypertension Pre-diabetes Surgical History (Updated 11/13/24 @ 07:55 by Raven Galvan CMA) S/P partial colectomy with anastomosis Family History (Updated 11/13/24 @ 07:56 by Raven Galvan CMA) Sister Hypertension Lung cancer Brother Hypertension Diabetes mellitus Review of Systems Const Details: - Neurologic: Reports numbness, tingling, balance issues, and concerns about forgetfulness. - Psychiatric: Reports irritability, anxiety, and being short-tempered. - Musculoskeletal: Reports ability to stand on toes and heels despite balance concerns. Physical Exam Neuro Other: Mental Status: Alert and oriented to person, place, and time. Normal attention. Normal spontaneous speech, fluency, and comprehension. No obvious issues with mood and memory. Affect is appropriate. Cranial Nerves: CN II: Visual rivera full to confrontation, visual acuity intact. CN III, IV, : Pupils equal, round, reactive to light and accommodation. Extraocular movements are normal. CN V: Facial sensation is normal. CN VII: Facial movements symmetrical. CN VIII: Hearing intact to bedside conversation is normal. CN IX, X: Palate elevates symmetrically. CN XI: Shoulder shrug and head turn symmetrical. CN XII: Tongue midline without atrophy or fasciculations. Coordination: Mzhadv-py-fgka and wlro-fa-hgik testing normal. No dysmetria. Gait and Station: No obvious gait abnormality. No ataxia or instability. Extrapyramidal: Full facial expressions and blinking. No rigidity. Movements are appropriate with no tremor or abnormality. Speech: Normal; no dysarthria or tremor. Assessment & Plan Assessment & Plan (1) MCI (mild cognitive impairment): Comment: [place] [facility] [place]: Mild cerebellar and cerebral cortical atrophy Code(s): G31.84 - Mild cognitive impairment of uncertain or unknown etiology Category: Medical (2) Peripheral neuropathy: Comment: EM[place]CS LE[place] [facility] [place]: Mild motor more than sensory PN with features of demyelination and axonal loss Code(s): G62.9 - Polyneuropathy, unspecified Category: Medical Qualifiers: Peripheral neuropathy type: polyneuropathy, unspecified Qualified Code(s): G62.9 - Polyneuropathy, unspecified Plan Impression: a: Multifactorial gait disorder b: Mild cerebellar and cerebral atrophy c: Motor peripheral neuropathy Rec: a: Avoid alcohol b: Regualar light exercise like walking c: Labs to r/o inflammatory/infectious etiology of neuropathy Orders: Orders Erythrocyte Sedimentation Rate Today G62.9 - Polyneuropathy, unspecified Immunofixation Pnl, Serum Today G62.9 - Polyneuropathy, unspecified Basic Metabolic Panel Fasting Today G62.9 - Polyneuropathy, unspecified Vitamin B12 and Folate Today G62.9 - Polyneuropathy, unspecified Lyme IgG/IgM w/reflex to WB Today G62.9 - Polyneuropathy, unspecified Coding Level of Care Code Est Pt Level 4 (95651) Diagnoses MCI (mild cognitive impairment) G31.84 Peripheral polyneuropathy G62.9 Peripheral neuropathy type: polyneuropathy, unspecified
--- OUTSIDE RECORDS SUMMARY | 2025-01-18 09:14 | XMS_ITS | Clinical Summary ---
Author Organization [facility] Address [address] [place] [address] [address] Phone Care Team Providers Care Scuba Diving Instructor Name Role Phone Sylvester Hemphill DO Primary Care Provider [phone] EmilianoSylvester wooten DO Unavailable Miguelina Presley PA-C Unavailable [phone] Immunizations No known immunizations Social History Tobacco [...] 08/10/2005 ZOSTER VACCINES (1 of 2) 08/10/2005 INFLUENZA VACCINE (#1) 2024 COVID-19 VACCINE (1 - 2024-2 6 season) 2024 RSV VACCINE (1 - 1-dose 75+ series) [...] topic Medical Devices Not on file Insurance [facility] Member Subscriber Plan / Payer (Ef fective 2018-Present) Name:Nadeem Wright Jr. Member ID:[id number] Relation to Subscriber:Self Name:Nadeem Wright Jr. Subscriber ID:[id number] Payer ID:Not on file Group ID:Not on file Type:Indemnity Address: [facility]/[address] POS [facility] [place] [address] [place] Member Subscriber Plan / Payer (Ef fective 2018-Present) Name:Nadeem Wright Jr. Member ID:[id number] Relation to Subscriber:Self Name:Nadeem Wright Jr. Subscriber ID:[id number] Payer ID:Not on file Group ID:Not on file Type:Indemnity Address: [facility] C/[address] [place] [address] [place] Member Subscriber Plan / Payer (Ef fective 2018-Present) Name:Nadeem Wright Jr. Member ID:[id number] Relation to Subscriber:Self Name:Nadeem Wright Jr. Subscriber ID:[id number] Payer ID:Not on file Group ID:Not on file Type:Indemnity Address: [employer] C/O [employer] [address] POS Member Subscriber Plan / Payer (Ef fective 2018-Present) Name:Nadeem Wright Jr. Member ID:[id number] Relation to Subscriber:Self Name:Nadeem Wright Jr. Subscriber ID:[id number] Payer ID:Not on file Group ID:Not on file Type:Indemnity Address: [facility] [place] [id number] [facility] POS Care Teams Scuba Diving Instructor Relationship Specialty Start Date End Date Sylvester Hemphill DO PCP - General Internal Medicine 12/02/18 Sylvester Hemphill DO Internal Medicine 12/02/18 Miguelina Presley PA-C [address] [place] [id number] Physician Weatherization Administrator Hematology 09/30/23 Additional Source Comments The information contained in this document represents components of the legal health record. It is not the complete legal health record.[facility]
--- OUTSIDE RECORDS SUMMARY | 2025-01-18 09:14 | XMS_ITS | Patient Health Record ---
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) Active confirmed Problem Localized, primary osteoarthritis of the ankle and/or foot (491837985) Arthritis of joint of lesser toe, left (M19.072) Active confirmed Problem Localized, primary osteoarthritis of the ankle and/or foot (471066410) Arthritis of joint of lesser toe, right (M19.071) Active confirmed Plan Of Treatment No Information Insurance Providers Payer Name Payer Address Payer Phone Subscriber Number Group Number Insured Name Patient Relationship to Insured Coverage Start Date Coverage End Date [employer] Medicare [id number] [address] [address] [place] [address] [id number] Tosha Wright Spouse - patient is the spouse of the insured Medical (General) History Medical History History ICD Code Alzheimers disease Anxiety High blood pressure Surgical History Surgery Date(Month/Year)
--- OUTSIDE RECORDS SUMMARY | 2025-01-18 09:14 | XMS_ITS | Clinical Summary ---
Author Organization [facility] [address] [facility] Address [address] [place] [address] Phone Care Team Providers Care Lint Cleaner Name Role Phone Luis Silver MD Primary Care Provider [phone] Allergies Active Allergy Reactions Criticality Noted Date [...] each day. 90 tablet 3 5 Active promethazine (PHENERGAN) 12.5 mg tabletIndication [...] complication, without long-term current use of insulin (CMS/HCC V24, CMS/HCC V28) Take 1 tablet (500 mg total) by mouth 1 (one) time each day with breakfast. 30 each 3 5 Active traZODone (DESYREL) 50 mg tabletIndication s:Anxiety disorder, unspecified Take 1 tablet (50 mg total) by mouth at bedtime. 90 tablet 1 5 Active losartan-hydroCH LOROthiazide (HYZAAR) 100-12.5 mg per tablet Take 1 tablet by mouth 1 (one) time each day. 90 tablet 1 5 Active losartan-hydroCH LOROthiazide (HYZAAR) 100-12.5 mg per tablet Take 1 tablet by mouth 1 (one) time each day. 90 tablet 1 5 12/22/19 25 Discontinu ed(Reorder ) Active Problems Problem Noted Date Diagnosed Date Acquired hammer toe of left foot 06/16/2024 Acquired hammer toe of right foot 06/16/2024 Primary localized osteoarthrosis of ankle and fo ot 06/16/2024 Pronation deformity of right foot 06/16/2024 Essential hypertension 07/10/2022 Hyperlipidemia 07/10/2022 Pre-diabetes 07/10/2022 Encounters Date Type Department Care Team Description 11/02/2024 8:30 AM EDT Office Visit Internal Medicine - [address] [place] [address] Rachel Wade NP Vertigo (Primary [...] Date Site/Laterality Comments OTHER SURGICAL HISTORY PROCEDURE: [place] COLECTOMY PARTIAL W/ANASTOMOSIS Medical History Medical History [...] AM EST Office Visit Internal Medicine - [place] [address] [facility] [address] [place] [id number] Luis Silver MD [address] [facility] [address] [place] [address] Health Maintenance Due Date Last Done Comments Colorectal Cancer Screening: Colonoscopy 1955 COVID-19 Vaccine (#1) 08/10/1960 Diabetes: Annual Foot Exam 08/10/1965 Diabetes: Annual Retina Eye Exam 08/10/1965 DTaP,Tdap,and Td Vaccines (1 - Tdap) 08/10/1974 Pneumococcal Vaccine: 50+ Years (1 of 2 - PCV) 08/10/1974 Zoster Vaccines (1 of 2) 08/10/1974 Falls Risk Assessment 03/17/2022 Hepatitis C Screening [...] LAB CHEMISTRY METHOD 11/02/2024 3:30 PM EDT [facility] Blood Venous blood specimen / Unknown Venipuncture / Unknown 11/02/2024 9:15 AM EDT 11/02/2024 9:15 AM EDT Narrative [facility] - 11/02/2024 3:30 PM EDT The Siemens Advia Centaur Chemiluminescent Immunoassay is used. Results obtained with different assay methods or kits cannot be used interchangeably. Results cannot be interpreted as absolute evidence of the presence or absence of malignant disease. us Rachel Wade NP LAB BLOOD ORDERABLES Final Resul t [facility] [address] [place] [address], [place] [phone] * Thyroid stimulating hormone with reflex to free t4 and free t3 (11/02/2024 9:15 AM EDT) Pathologist [facility] TSH 1.37 0.40 - 4.00 mcIU/mL LAB CHEMISTRY METHOD 11/02/2024 5:55 PM EDT [facility] Blood Venous blood specimen / Unknown Venipuncture / Unknown 11/02/2024 9:15 AM EDT 11/02/2024 9:15 AM EDT us Andreynaeemrox Wade WAXING MACHINE OPERATOR LAB BLOOD ORDERABLES Final Resul t [facility] [address] [place] [address], [place] [phone] * (ABNORMAL) Lipid panel with reflex to direct LDL (11/02/2024 9:15 AM EDT) [facility] Cholesterol 145 0 - 200 mg/dL LAB CHEMISTRY METHOD 11/02/2024 2:28 PM EDT [facility] Triglycerides 424(H) 0 - 150 mg/dL LAB CHEMISTRY METHOD 11/02/2024 2:28 PM T [facility] HDL 33(L) >=40 mg/dL LAB CHEMISTRY METHOD 11/02/2024 2:28 PM T [facility] LDL Calculated 27 0 - 100 mg/dL LAB CHEMISTRY METHOD 11/02/2024 2:28 PM [facility] Comment:Unable to calculate when triglycerides >400 mg/dL. VLDL Cholesterol [place] 84.8 mg/dL LAB CHEMISTRY METHOD 11/02/2024 2:28 PM EDT [facility] Comment:Unable to calculate when triglycerides >400 mg/dL. Non HDL Chol. (LDL+VLDL) 112 <145 mg/dL LAB CHEMISTRY METHOD 11/02/2024 2:28 PM T [facility] Comment:Unable to calculate when triglycerides >400 mg/dL. Chol/HDL Ratio 4.4 0.0 - 4.4 LAB CHEMISTRY METHOD 11/02/2024 2:28 PM EDT [facility] Blood Venous blood specimen / Unknown Venipuncture / Unknown 11/02/2024 9:15 AM EDT 11/02/2024 9:15 AM EDT Rachel Wade WAXING MACHINE OPERATOR LAB BLOOD ORDERABLES Final Resul t Performing Organization Address [facility] Co de Phone Number [facility] [address] [place] [address], [place] [phone] * Vitamin D 25 hydroxy (11/02/2024 9:15 AM EDT) Vit D, 25-Hydroxy 48.7 30.0 - 80.0 ng/mL LAB CHEMISTRY METHOD 11/02/2024 3:29 PM EDT [facility] Blood Venous blood specimen / Unknown Venipuncture / Unknown 11/02/2024 9:15 AM EDT 11/02/2024 9:15 AM EDT Rachel Wade WAXING MACHINE OPERATOR LAB BLOOD ORDERABLES Final Resul t Performing Organization Address [facility] de Phone Number [facility] [address] [place] [address], [place] [phone] * Complete blood count (11/02/2024 9:15 AM EDT) WBC 7.6 4.8 - 10.8 K/mcL LAB HEMETOLOGY METHOD 11/02/2024 10:35 AM EDT [facility] RBC 4.80 4.50 - 5.50 M/[facility] LAB HEMETOLOGY METHOD 11/02/2024 10:35 AM EDT [facility] Hemoglobin 14.9 13.5 - 17.5 g/dL LAB HEMETOLOGY METHOD 11/02/2024 10:35 AM EDT [facility] Hematocrit 44.5 42.0 - 54.0 % LAB HEMETOLOGY METHOD 11/02/2024 10:35 AM EDT [facility] MCV 92.1 79.0 - 98.0 FL LAB HEMETOLOGY METHOD 11/02/2024 10:35 AM EDT [facility] MCH 30.8 27.0 - 32.0 pcg LAB HEMETOLOGY METHOD 11/02/2024 10:35 AM T [facility] MCHC 33.5 32.0 - 37.0 g/dL LAB HEMETOLOGY METHOD 11/02/2024 10:35 AM EDT [facility] RDW 12.4 11.0 - 15.0 % LAB HEMETOLOGY METHOD 11/02/2024 10:35 AM [facility] Platelets 156 130 - 400 K/mcL LAB HEMETOLOGY METHOD 11/02/2024 10:35 AM [facility] MPV 9.9 7.0 - 11.0 FL LAB HEMETOLOGY METHOD 11/02/2024 10:35 AM [facility] NRBC 0.0 <1.0 % LAB HEMETOLOGY METHOD 11/02/2024 10:35 AM [facility] NRBC Absolute 0.00 <0.10 K/mcL LAB HEMETOLOGY METHOD 11/02/2024 10:35 AM [facility] Blood Venous blood specimen / Unknown Venipuncture / Unknown 11/02/2024 9:15 AM EDT 11/02/2024 9:15 AM EDT us Rachel Wade NP LAB BLOOD ORDERABLES Final Resul t [facility] [address] [place] [address], * Magnesium (11/02/2024 9:15 AM EDT) Magnesium 2.4 1.9 - 2.6 mg/dL LAB CHEMISTRY METHOD 11/02/2024 1:40 PM EDT [facility] Blood Venous blood specimen / Unknown Venipuncture / Unknown 11/02/2024 9:15 AM EDT 11/02/2024 9:15 AM EDT Rachel Wade WAXING MACHINE OPERATOR LAB BLOOD ORDERABLES Final Resul t Performing Organization Address [facility] de Phone Number [facility] [address] [place] [address], [place] [phone] * (ABNORMAL) Hemoglobin A1c (11/02/2024 9:15 AM EDT) Hemoglobin A1C 6.8(H) <6.5 % LAB CHEMISTRY METHOD 11/02/2024 1:04 PM EDT [facility] Mean Bld Glu Estim. 148 mg/dL LAB CHEMISTRY METHOD 11/02/2024 1:04 PM EDT [facility] Blood Venous blood specimen / Unknown Venipuncture / Unknown 11/02/2024 9:15 AM EDT 11/02/2024 9:15 AM EDT Rachel Wade WAXING MACHINE OPERATOR LAB BLOOD ORDERABLES Final Resul t Performing Organization Address [facility] de Phone Number [facility] [address] [place] [address], [place] [phone] * Vitamin B12 (11/02/2024 9:15 AM EDT) Vitamin B-12 736 250 - 900 pcg/mL LAB CHEMISTRY METHOD 11/02/2024 2:13 PM EDT [facility] Blood Venous blood specimen / Unknown Venipuncture / Unknown 11/02/2024 9:15 AM EDT 11/02/2024 9:15 AM EDT Rachel Wade WAXING MACHINE OPERATOR LAB BLOOD ORDERABLES Final Resul t [facility] [address] [place] [address], * (ABNORMAL) Comprehensive metabolic panel (11/02/2024 9:15 AM EDT) Sodium 141 133 - 145 mmol/L LAB CHEMISTRY METHOD 11/02/2024 2:13 PM EDT [facility] Potassium 3.9 3.5 - 5.5 mmol/L LAB CHEMISTRY METHOD 11/02/2024 2:13 PM [facility] Chloride 106 96 - 110 mmol/L LAB CHEMISTRY METHOD 11/02/2024 2:13 PM [facility] CO2 28 21 - 32 mmol/L LAB CHEMISTRY METHOD 11/02/2024 2:13 PM [facility] Anion Gap 7 3 - 11 LAB CHEMISTRY METHOD 11/02/2024 2:13 PM [facility] Glucose 105(H) 70 - 100 mg/dL LAB CHEMISTRY METHOD 11/02/2024 2:13 PM [facility] BUN 15 5 - 25 mg/dL LAB CHEMISTRY METHOD 11/02/2024 2:13 PM [facility] Creatinine 1.10 0.70 - 1.30 mg/dL LAB CHEMISTRY METHOD 11/02[facility]24 [facility] e[facility] 73 >=60 mL/min/1. 73m2 LAB CHEMISTRY METHOD 11/02/2024 2:13 PM [facility] Comment:Calculation based on the Chronic Kidney Disease Epidemiology Collaboration (CKD-EPI) equation refit without adjustment for race. BUN/Creatinine Ratio 13.6 LAB CHEMISTRY METHOD 11/02/2024 2:13 PM [facility] Calcium 9.5 8.5 - 10.5 mg/dL LAB CHEMISTRY METHOD 11/02/2024 2:13 PM [facility] AST (SGOT) 18 10 - 42 unit/L LAB CHEMISTRY METHOD 11/02/2024 2:13 PM EDT [facility] ALT (SGPT) 30 10 - 60 unit/L LAB CHEMISTRY METHOD 11/02/2024 2:13 PM EDT [facility] Alkaline Phosphatase 80 42 - 121 unit/L LAB CHEMISTRY METHOD 11/02/2024 2:13 PM EDT [facility] Total Protein 7.0 6.0 - 8.0 g/dL LAB CHEMISTRY METHOD 11/02/2024 2:13 PM EDT [facility] Albumin 4.3 3.2 - 5.0 g/dL LAB CHEMISTRY METHOD 11/02/2024 2:13 PM EDT [facility] Total Bilirubin 0.6 0.0 - 1.4 mg/dL LAB CHEMISTRY METHOD 11/02/2024 2:13 PM EDT [facility] Blood Venous blood specimen / Unknown Venipuncture / Unknown 11/02/2024 9:15 AM EDT 11/02/2024 9:15 AM EDT us Rachel Wade NP LAB BLOOD ORDERABLES Final Resul t [facility] [address] [place] [address], * [place] ABDOMINAL AORTA REAL TIME SCREEN [...] 1.2 cmeach. CONCLUSIONS: No evidence of AAA. us Jolanta Yadav NP IMG US PROCEDURES Final Result from Last 3 Months or Most Recently Relevant to Health Maintenance Insurance [facility] MEDICARE Care Teams Lint Cleaner Relationship Specialty Start Date End Date Luis [place] MD [address] [facility] [address] [place] [address] PCP - General 09/12/23
--- OUTSIDE RECORDS SUMMARY | 2025-01-18 09:14 | XMS_ITS | Data Portability ---
Author Organization [place] - [facility], Allergy Address [address] [place] [address] Care Team Providers Care Mule Operator Name Role Phone YINA HOGUE Primary Care Provider [phone] Assessment Encounter Date Assessment Date Assessment LastModified by Organization Details LastModified Time 09/20/2023 09/20/2023 6-12 months of globus sensation. Given hx of tob and alcohol use suggest Barium Swallow as no masses on FOL [email or web address] Not available 09/20/2023 10:10:24 Plan of Treatment Reminders Order Date Submit Date Provider Last Modified By Organization Details Last Modified Time Details Appointments None recorded. Lab None recorded. Referral None recorded. Procedures None recorded. Surgeries None recorded. Imaging XR, esophagram 2023 024 [email or web address] [facility], [address] [place] [address], [id number], 11:45:29 Medication Orders None recorded. Patient TargetsNo targets recorded. Patient InstructionsNo instructions recorded. Reason for Referral None Reported. Results Created Date Observation Date Name Description Value Unit Range Abnormal Flag Note LastModifiedBy Organization Detail LastModifiedTime 11/25/19 24 11/25/2023 XR, esoph agram No observ ation record ed. [email or web address] [facility] (Imaging) [address] [place] [address], [id number], 11/25/2023 16:12:13 Result Notes None recorded. Problems Name Problem SNOMED Code Status Onset Date Resolution Date Notes Provider Name and Address Organization Details Recorded Time Feeling of lump in throat 864392574 Active 2023 LI AKINS MD [address] [address], [place], [address], [facility] 4 10:08:35 Chokes when swallowing 534112079 Active 2023 LI AKINS MD [address] [address], [place], [address], [facility] 4 10:08:43 Bilateral tinnitus 5876444752423 Active 2023 LI AKINS MD [address] [address], [place], [address], [facility] [place] 4 10:08:47 Problem Notes None recorded. Procedures Surgical History Date Name Laterality Status Provider Name and Address Organization Details Recorded Time 09/20/19 24 Fiberoptic Laryngoscopy (Comprehensive) completed LI MICHELLE MD [address], [address], [facility] 09/20/2023 10:08:28 Imaging Results None recorded. Procedure Notes None recorded. Medical Equipment None Reported. Allergies No known drug allergies Medications Name Sig Start Date Stop Date Status Note LastModified by Organization Details LastModified Time amoxicillin 500 mg capsule TAKE 1 CAPSULE BY MOUTH THREE TIMES A DAY active Not Available Not Available No t Available trazodone 50 mg tablet TAKE 1 TABLET BY MOUTH EVERYDAY AT BEDTIME active Not Available Not Available No t Available ibuprofen 800 mg tablet TAKE 1 TABLET BY MOUTH EVERY 8 HOURS NEEDED 09/19 completed Not Available Not Available Not Available atenolol 25 mg tablet TAKE 1 TABLET BY MOUTH EVERY DAY active Not Available Not Available No t Available losartan 25 mg tablet TAKE 1 TABLET BY MOUTH EVERY DAY 09/19 completed Not Available Not Available Not Available paroxetine 40 mg tablet TAKE 1 TABLET BY MOUTH DAILY IN THE MORNING active Not Available Not Available No t Available rosuvastati n 20 mg tablet TAKE 1 TABLET BY MOUTH EVERY DAY active Not Available Not Available No t Available chlorhexidi ne gluconate 0.12 % mouthwash SWISH AND SPIT WITH 10 ML 3 TIMES A DAY active Not Available Not Available No t Available losartan 100 mg-hydrochl orothiazide 12.5 mg tablet TAKE 1 TABLET BY MOUTH EVERY DAY active Not Available Not Available No t Available Vitals Date Recorded Body height Body mass index (BMI) Body weight Provider Name and Address Organization Details Last Updated DateTime 09/20/2023 167.64 cm 30.3 kg/m2 05608.37 g Shu Rosado [place] - [facility] 09/20/2023 09:24:43 Social History Question Answer Notes LastModified by [employer] Details LastModified Time Tobacco Smoking Status Current Every Day Smoker Shu jean [place] - [facility] 09/20/2023 09:25:58 What Is Your Current Pack Years? 30ormorepacky ears Information not available 09/20/2023 How Much Tobacco Do You Smoke? 1 PPD Information not available 09/20/2023 How Many Years Have You Smoked Tobacco? 30 Information not available 09/20/2023 Sex: Unknown Functional Status Question Answer Note LastModified by [employer] Details LastModified Time Do you use any illicit or recreational drugs? No Information not available 09/20/2023 What is your level of alcohol consumption? None 40 years of alcohol use. None for 4 years Information not available 09/20/2023 Mental Status None recorded. Family History Nothing Reported. Medical History Condition Response High Cholesterol Y Hypertension Y Past Encounters Encounter ID Performer Location Encounter Start Date Encounter Closed Date Diagnosis/Indication Diagnosis SNOMED-CT Code Diagnosis ICD10 Code Diagnosis IMO Codes Diagnosis Note [id number] LI CANELA MD [facility] [address] [address] 09/20/2023 08:57:27 09/20/2023 11:09:39 Feeling of lump in throat 243015008 R09.89 Chokes whe n swallowing 751538037 R09.89 Bilateral tinnitus 30095 01613 102 H93.13 arrange for audio Health Concerns Section Related Observation LastModified by Organization Detai ls LastModified Time None Recorded Concern Status LastModified by Organization Details LastModified Time None Recorded Advance Directives Directive None Recorded Payers Insurance Date Sequence Insurance Name Policy Number Policy Milner Covered Member ID Milner Member ID Guarantor Name 12/20/2023 1 [facility] [id number] Tosha Joseph Adriana [id number] Nadeem Adriana Notes Date Note Type Note Provider Name and Address Organization Details Recorded Time 09/20/2023 text/html ROS as noted in the HPI 6-12 months of sensation of food catching throat.Feels similar for solids and liquids. No throat pain. No ear pain, weight loss or hemoptysis. 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
== END 2025-01-18 08:55 | disposition home or self-care (01) ==
LOC: HO.HSM 08:36
PROVIDERS: PCP Internal Medicine; Visit Provider Psychiatry & Neurology Neurology
DX: G31.84 Mild cognitive impairment of uncertain or unknown etiology (principal); G62.9 Polyneuropathy, unspecified
CPT/HCPCS: 99214

== ENCOUNTER 2025-01-19 07:42 | Outpatient (REF) | payer OTHER, SELFPAY ==
--- OUTSIDE RECORDS SUMMARY | 2025-01-19 07:48 | XMS_ITS | Clinical Summary ---
Author Organization [facility] Address [address] [address] Phone Care Team Providers Care Stone Paver Name Role Phone Sylvester Hemphill DO Primary Care Provider [phone] EmilianoSylvester wooten DO Unavailable Miguelina Presley PA-C Unavailable [phone] Immunizations No known immunizations Social History Tobacco [...] topic Medical Devices Not on file Insurance [facility] Member Subscriber Plan / Payer (Ef fective 2018-Present) Name:Nadeem Wright Jr. Member ID:[id number] Relation to Subscriber:Self Name:Nadeem Wright Jr. Subscriber ID:[id number] Payer ID:Not on file Group ID:Not on file Type:Indemnity Address: [facility]/[address] POS [facility] [place] [address] [place] [address] SNF Member Subscriber Plan / Payer (Ef fective 2018-Present) Name:Nadeem Wright Jr. Member ID:[id number] Relation to Subscriber:Self Name:Nadeem Wright Jr. Subscriber ID:[id number] Payer ID:Not on file Group ID:Not on file Type:Indemnity Address: [facility] C/[address] [place] [address] [place] [address] SNF Member Subscriber Plan / Payer (Ef fective 2018-Present) Name:Nadeem Wright Jr. Member ID:[id number] Relation to Subscriber:Self Name:Nadeem Wright Jr. Subscriber ID:[id number] Payer ID:Not on file Group ID:Not on file Type:Indemnity Address: [employer] [address] POS Member Subscriber Plan / Payer (Ef fective 2018-Present) Name:Nadeem Wright Jr. Member ID:[id number] Relation to Subscriber:Self Name:Nadeem Wright Jr. Subscriber ID:[id number] Payer ID:Not on file Group ID:Not on file Type:Indemnity Address[facility] [employer] [address] [id number] [facility] POS Care Teams Stone Paver Relationship Specialty Start Date End Date Sylvester Hemphill DO PCP - General Internal Medicine 12/02/18 Sylvester Hemphill DO Internal Medicine 12/02/18 Miguelina Presley PA-C [address] [place] [email or web address] Physician [facility] 09/30/23 Additional Source Comments The information contained in this document represents components of the legal health record. It is not the complete legal health record.[facility]
--- OUTSIDE RECORDS SUMMARY | 2025-01-19 07:48 | XMS_ITS | Clinical Summary ---
Author Organization [facility] [address] [facility] Address [address] [place] [address] Phone Care Team Providers Care Ld Teacher Name Role Phone Luis Silver MD Primary Care Provider [phone] Allergies Active Allergy Reactions Criticality Noted Date [...] AM EDT Office Visit Internal Medicine - [address] [place] [address] Rachel Wade NP Vertigo (Primary [...] Date Site/Laterality Comments OTHER SURGICAL HISTORY PROCEDURE: IN COLECTOMY PARTIAL W/ANASTOMOSIS Medical History Medical History [...] AM EST Office Visit Internal Medicine - [place] [address] [facility] [address] [place] [id number] Luis Silver MD [address] [facility] [address] [place] [address] Health Maintenance Due Date Last Done Comments [...] LAB CHEMISTRY METHOD 11/02/2024 3:30 PM EDT [facility] Blood Venous blood specimen / Unknown Venipuncture / Unknown 11/02/2024 9:15 AM EDT 11/02/2024 9:15 AM EDT Narrative [facility] - 11/02/2024 3:30 PM EDT The Siemens Advia Centaur Chemiluminescent Immunoassay is used. Results obtained with different assay methods or kits cannot be used interchangeably. Results cannot be interpreted as absolute evidence of the presence or absence of malignant disease. us Rachel Wade NP LAB BLOOD ORDERABLES Final Resul t [facility] [address] [place] [address], [place] [phone] * Thyroid stimulating hormone with reflex to free t4 and free t3 (11/02/2024 9:15 AM EDT) Pathologist [facility] TSH 1.37 0.40 - 4.00 mcIU/mL LAB CHEMISTRY METHOD 11/02/2024 5:55 PM EDT [facility] Blood Venous blood specimen / Unknown Venipuncture / Unknown 11/02/2024 9:15 AM EDT 11/02/2024 9:15 AM EDT us Andreynaeemrox Wade COMMUNITY WORKER LAB BLOOD ORDERABLES Final Resul t [facility] [address] [place] [address], [place] [phone] * (ABNORMAL) Lipid panel with reflex to direct LDL (11/02/2024 9:15 AM EDT) [facility] Cholesterol 145 0 - 200 mg/dL LAB CHEMISTRY METHOD 11/02/2024 2:28 PM EDT [facility] Triglycerides 424(H) 0 - 150 mg/dL LAB CHEMISTRY METHOD 11/02/2024 2:28 PM T [facility] HDL 33(L) >=40 mg/dL LAB CHEMISTRY METHOD 11/02/2024 2:28 PM T [facility] LDL Calculated 27 0 - 100 mg/dL LAB CHEMISTRY METHOD 11/02/2024 2:[address] [facility] Comment:Unable to calculate when triglycerides >400 mg/dL. VLDL Cholesterol [place] 84.8 mg/dL LAB CHEMISTRY METHOD 11/02/2024 2:28 PM EDT [facility] Comment:Unable to calculate when triglycerides >400 mg/dL. Non HDL Chol. (LDL+VLDL) 112 <145 mg/dL LAB CHEMISTRY METHOD 11/02/2024 2:28 PM T [facility] Comment:Unable to calculate when triglycerides >400 mg/dL. Chol/HDL Ratio 4.4 0.0 - 4.4 LAB CHEMISTRY METHOD 11/02/2024 2:28 PM EDT [facility] Blood Venous blood specimen / Unknown Venipuncture / Unknown 11/02/2024 9:15 AM EDT 11/02/2024 9:15 AM EDT Rachel Wade COMMUNITY WORKER LAB BLOOD ORDERABLES Final Resul t Performing Organization Address [facility] Co de Phone Number [facility] [address] [place] [address], [place] [phone] * Vitamin D 25 hydroxy (11/02/2024 9:15 AM EDT) Vit D, 25-Hydroxy 48.7 30.0 - 80.0 ng/mL LAB CHEMISTRY METHOD 11/02/2024 3:29 PM EDT [facility] Blood Venous blood specimen / Unknown Venipuncture / Unknown 11/02/2024 9:15 AM EDT 11/02/2024 9:15 AM EDT Rachel Wade COMMUNITY WORKER LAB BLOOD ORDERABLES Final Resul t Performing Organization Address [facility] de Phone Number [facility] [address] [place] [address], [place] [phone] * Complete blood count (11/02/2024 9:15 AM EDT) WBC 7.6 4.8 - 10.8 K/mcL LAB HEMETOLOGY METHOD 11/02/2024 10:35 AM EDT [facility] RBC 4.80 4.50 - 5.50 M/[facility] LAB HEMETOLOGY METHOD 11/02/2024 10:35 AM EDT [facility] Hemoglobin 14.9 13.5 - 17.5 g/dL LAB HEMETOLOGY METHOD 11/02/2024 10:35 AM EDT [facility] Hematocrit 44.5 42.0 - 54.0 % LAB HEMETOLOGY METHOD 11/02/2024 10:35 AM EDT [facility] MCV 92.1 79.0 - 98.0 FL LAB HEMETOLOGY METHOD 11/02/2024 10:35 AM EDT [facility] MCH 30.8 27.0 - 32.0 pcg LAB HEMETOLOGY METHOD 11/02/2024 10:35 AM T [facility] MCHC 33.5 32.0 - 37.0 g/dL LAB HEMETOLOGY METHOD 11/02/2024 10:35 AM EDT [facility] RDW 12.4 11.0 - 15.0 % LAB HEMETOLOGY METHOD 11/02/2024 10:[address] [facility] Platelets 156 130 - 400 K/mcL LAB HEMETOLOGY METHOD 11/02/2024 10:[address] [facility] MPV 9.9 7.0 - 11.0 FL LAB HEMETOLOGY METHOD 11/02/2024 10:[address] [facility] NRBC 0.0 <1.0 % LAB HEMETOLOGY METHOD 11/02/2024 10:[address] [facility] NRBC Absolute 0.00 <0.10 K/mcL LAB HEMETOLOGY METHOD 11/02/2024 10:[address] [facility] Blood Venous blood specimen / Unknown Venipuncture / Unknown 11/02/2024 9:15 AM EDT 11/02/2024 9:15 AM EDT us Rachel Wade NP LAB BLOOD ORDERABLES Final Resul t [facility] [address] [place] [address], * Magnesium (11/02/2024 9:15 AM EDT) Magnesium 2.4 1.9 - 2.6 mg/dL LAB CHEMISTRY METHOD 11/02/2024 1:40 PM EDT [facility] Blood Venous blood specimen / Unknown Venipuncture / Unknown 11/02/2024 9:15 AM EDT 11/02/2024 9:15 AM EDT Rachel Wade COMMUNITY WORKER LAB BLOOD ORDERABLES Final Resul t Performing Organization Address [facility] de Phone Number [facility] [address] [place] [address], [place] [phone] * (ABNORMAL) Hemoglobin A1c (11/02/2024 9:15 AM EDT) Hemoglobin A1C 6.8(H) <6.5 % LAB CHEMISTRY METHOD 11/02/2024 1:04 PM EDT [facility] Mean Bld Glu Estim. 148 mg/dL LAB CHEMISTRY METHOD 11/02/2024 1:04 PM EDT [facility] Blood Venous blood specimen / Unknown Venipuncture / Unknown 11/02/2024 9:15 AM EDT 11/02/2024 9:15 AM EDT Rachel Wade COMMUNITY WORKER LAB BLOOD ORDERABLES Final Resul t Performing Organization Address [facility] de Phone Number [facility] [address] [place] [address], [place] [phone] * Vitamin B12 (11/02/2024 9:15 AM EDT) Vitamin B-12 736 250 - 900 pcg/mL LAB CHEMISTRY METHOD 11/02/2024 2:13 PM EDT [facility] Blood Venous blood specimen / Unknown Venipuncture / Unknown 11/02/2024 9:15 AM EDT 11/02/2024 9:15 AM EDT Rachel Wade COMMUNITY WORKER LAB BLOOD ORDERABLES Final Resul t [facility] [address] [place] [address], * (ABNORMAL) Comprehensive metabolic panel (11/02/2024 9:15 AM EDT) Sodium 141 133 - 145 mmol/L LAB CHEMISTRY METHOD 11/02/2024 2:13 PM EDT [facility] Potassium 3.9 3.5 - 5.5 mmol/L LAB CHEMISTRY METHOD 11/02/2024 2:[address] [facility] Chloride 106 96 - 110 mmol/L LAB CHEMISTRY METHOD 11/02/2024 2:[address] [facility] CO2 28 21 - 32 mmol/L LAB CHEMISTRY METHOD 11/02/2024 2:[address] [facility] Anion Gap 7 3 - 11 LAB CHEMISTRY METHOD 11/02/2024 2:[address] [facility] Glucose 105(H) 70 - 100 mg/dL LAB CHEMISTRY METHOD 11/02/2024 2:[address] [facility] BUN 15 5 - 25 mg/dL LAB CHEMISTRY METHOD 11/02/2024 2:[address] [facility] Creatinine 1.10 0.70 - 1.30 mg/dL LAB CHEMISTRY METHOD 11/02[facility]24 [facility] eGFR 73 >=60 mL/min/1. 73m2 LAB CHEMISTRY METHOD 11/02/2024 2:[address] [facility] Comment:Calculation based on the Chronic Kidney Disease Epidemiology Collaboration (CKD-EPI) equation refit without adjustment for race. BUN/Creatinine Ratio 13.6 LAB CHEMISTRY METHOD 11/02/2024 2:[address] [facility] Calcium 9.5 8.5 - 10.5 mg/dL LAB CHEMISTRY METHOD 11/02/2024 2:[address] [facility] AST (SGOT) 18 10 - 42 unit/L LAB CHEMISTRY METHOD 11/02/2024 2:13 PM EDT [facility] ALT (SGPT) 30 10 - 60 unit/L LAB CHEMISTRY METHOD 11/02/2024 2:13 PM EDT [facility] Alkaline Phosphatase 80 42 - 121 unit/L LAB CHEMISTRY METHOD 11/02/2024 2:13 PM EDT [facility] Total Protein 7.0 6.0 - 8.0 g/dL LAB CHEMISTRY METHOD 11/02/2024 2:13 PM EDT [facility] Albumin 4.3 3.2 - 5.0 g/dL LAB CHEMISTRY METHOD 11/02/2024 2:13 PM EDT [facility] Total Bilirubin 0.6 0.0 - 1.4 mg/dL LAB CHEMISTRY METHOD 11/02/2024 2:13 PM EDT [facility] Blood Venous blood specimen / Unknown Venipuncture / Unknown 11/02/2024 9:15 AM EDT 11/02/2024 9:15 AM EDT us Rachel Wade NP LAB BLOOD ORDERABLES Final Resul t [facility] [address] [place] [address], * [place] ABDOMINAL AORTA REAL TIME SCREEN [...] [facility] MEDICARE Care Teams Ld Teacher Relationship Specialty Start Date End Date Luis Silver MD [address] [facility] [address] [place] [address] PCP - General 09/12/23
--- OUTSIDE RECORDS SUMMARY | 2025-01-19 07:48 | XMS_ITS | Patient Health Record ---
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 Problem Localized, primary osteoarthritis of the ankle and/or foot (313093331) Arthritis of joint of lesser toe, left (M19.072) Active confirmed Problem Localized, primary osteoarthritis of the ankle and/or foot (927770735) Arthritis of joint of lesser toe, right (M19.071) Active confirmed Plan Of Treatment No Information Insurance Providers Payer Name Payer Address Payer Phone Subscriber Number Group Number Insured Name Patient Relationship to Insured Coverage Start Date Coverage End Date [employer] Medicare [id number] [address] [address] [place] [address] [id number] Tosha Wright Spouse - patient is the spouse of the insured Medical (General) History Medical History History ICD Code Alzheimers disease Anxiety High blood pressure Surgical History Surgery Date(Month/Year)
[2025-01-19 09:14] LABS: Anion Gap 12 (12-20); Blood Urea Nitrogen 20 mg/dL (9-16); Calcium 9.0 mg/dL (8.4-10.2); Carbon Dioxide 28 mmol/L (22-29); Chloride 107 mmol/L (96-108); Estimated Glomerular Filt Rate > 60; Potassium 4.1 mmol/L (3.3-5.1); Sodium 143 mmol/L (135-145)
[2025-01-19 09:45] LABS: Folate 8.7 ng/mL (> or = 4.0); Vitamin B12 507 pg/mL (200-900)
[2025-01-20 04:58] LABS: Lyme Abs Screen <0.90 index
== END 2025-01-19 07:43 | disposition home or self-care (01) ==
LOC: HO.LAB 07:42
PROVIDERS: PCP Internal Medicine; Visit Provider Psychiatry & Neurology Neurology
DX: Z01.84 Encounter for antibody response examination (principal); G62.9 Polyneuropathy, unspecified
CPT/HCPCS: 36415; 80048; 82607; 82746; 82784; 85652; 86334; 86617; 86618